=== PATIENT | male | born 1995 | race Caucasian/White ===

== ENCOUNTER 2017-01-28 15:06 | Emergency (ER) | payer MEDICAID ==
[~2017-01-28] VITALS: Ht 180.3 cm; Wt 81.6 kg
[2017-01-28] MEDS ORDERED: IBUPROFEN600 MG ORAL (16:07)
[2017-01-28 16:24] VITALS: BP 131/82
--- NOTE | 2017-01-28 19:40 | Emergency Room Report ---
History of Present Illness General Chief Complaint: Lower Extremity Injury Source: Patient Present Illness HPI The patient is a 21-year-old male presenting for right foot pain. He states that he was descending wet stairs when he slipped and hit the right foot. He experienced immediate pain and swelling to the area. It is described as a 10 out of 10 dull ache and does not radiate. Worse with touch. He denies any numbness or tingling. Denies any other symptoms or pain Allergies: Coded Allergies: No Known Allergies (Unverified , 01/28/17) Patient History Past Medical History: see triage record Pertinent Family History: none Reviewed Nursing Documentation: PMH: Agreed, PSxH: Agreed Nursing Documentation-PMH Past Medical History: No Stated History Review of Systems All Other Systems: negative except mentioned in HPI Physical Exam Vital Signs Date Time Temp Pulse Resp B/P Pulse Ox O2 Delivery O2 Flow Rate FiO2 01/28/17 15:12 99.0 60 14 131/82 99 Room Air Sp02 EP Interpretation: reviewed, normal General Appearance: no apparent distress, alert, GCS 15, non-toxic Head: normocephalic, atraumatic Eyes: bilateral eye PERRL, bilateral eye normal inspection Musculoskeletal: back normal, gait/station normal, normal range of motion, no calf tenderness, swelling, tender - TTP over the R lateral foot over the MT Neurologic: alert, oriented x3, responsive, motor strength/tone normal, sensory intact, speech normal Psychiatric: judgement/insight normal, memory normal, mood/affect normal, no suicidal/homicidal ideation Skin: normal color, no rash, warm/dry, well hydrated Lymphatic: no adenopathy Procedures Splinting Splinting : Consent: Verbal Location: R leg Hand-Made Type: plaster Splint: poserior short Pre-Proc Neuro Vasc Exam: normal Post-Proc Neuro Vasc Exam: normal Patient Tolerated: Well Complications: None Medical Decision Making PA Attestation Dr. Alonso is my supervising physician. Patient management was discussed with my supervising physician Diagnostic Impression: Primary Impression: Foot fracture, right Qualified Codes: S92.901A - Unspecified fracture of right foot, initial encounter for closed fracture ER Course The patient is a 21-year-old male presenting for right foot pain. Ddx considered include but not limited to sprain/strain, fracture, contusion Physical exam: No apparent distress Right foot: There is tenderness to palpation as well as soft tissue swelling over the fifth metatarsal. Full active range of motion of the ankle and toes. DP 2+ Otherwise exam is unremarkable X-ray shows a fracture of the fifth metatarsal. A right leg posterior splint is placed and the patient is provided crutches. He will followup with primary doctor. ER precautions are given Other X-Ray Diagnostic Results Other X-Ray Diagnostic Results : X-Ray ordered: R FOOT # of Views/Limited Vs Complete: 3 View Indication: Pain EP Interpretation: Yes Interpretation: no dislocation, other - + fracture Impression: No acute disease Interpreting ER Provider: Dr. Celeste STEVENSON Scribe Text I am acting as scribe for my supervising physician. My supervising physician's interpretation of the R foot xray is that there is a fracture of the 5th MT Last Vital Signs Date Time Temp Pulse Resp B/P Pulse Ox O2 Delivery O2 Flow Rate FiO2 01/28/17 16:29 98.9 01/28/17 16:24 14 131/82 99 Room Air 01/28/17 15:12 60 Status: improved Disposition: HOME, SELF-CARE Condition: Improved Scripts Ibuprofen* (MOTRIN*) 600 Mg Tablet 600 MG ORAL Q8H Y for For Pain, #30 TAB 0 Refills Prov: JO DAVIS 01/28/17 Referrals: [facility],REFERRIN (PCP) Patient Instructions: Metatarsal Fracture Additional Instructions: I discussed my findings with the patient. All questions and concerns have been answered. Treatment and medication compliance have been addressed. I advised the patient that they need to follow up with PMD in 3-5 days. Return to ED if pain remains or worsens, numbness or tingling occurs, new rash is noticed, fever is noticed, or if needed for any reason. Patient verbalized understanding of discharge instructions. JO DAVIS Jan 28, 2017 19:40
== END 2017-01-28 16:30 | disposition home or self-care (01) ==
LOC: EMR 16:08
DX: S92.901A Unspecified fracture of right foot, initial encounter for closed fracture (principal); W01.0XXA Fall on same level from slipping, tripping and stumbling without subsequent striking against object, initial encounter; Y93.9 Activity, unspecified; Y92.9 Unspecified place or not applicable
CPT/HCPCS: 29515; 99283